=== PATIENT | female | born 1995 | race American Indian/Alaskan Native ===

== ENCOUNTER 2019-02-25 18:34 | Inpatient (IN) | payer OTHER ==
[2019-02-25] MEDS ORDERED: ePHEDrine SULFATE 50 MG/1 ML INJ IV PRN (21:01)
[2019-02-25] MEDS ORDERED: TERBUTALINE 1 MG/1 ML INJ SUB-Q PRN (21:01)
[2019-02-25] MEDS ORDERED: LIDOCAINE (2%) 20 MG/1 ML VIAL 20 ML MDV INFILTRATI ONE (21:01)
[2019-02-25] MEDS ORDERED: AMPICILLIN/NS 2 GM/100 ML 2 GM/100 ML BAG IV ONE (21:01)
[2019-02-25] MEDS ORDERED: fentaNYL 100 MCG/2 ML INJ IV PRN (21:01)
[2019-02-25] MEDS ORDERED: TERBUTALINE 1 MG/1 ML INJ IVP PRN (21:01)
[2019-02-25] MEDS ORDERED: BUTORPHANOL 2 MG/1 ML INJ IV PRN (21:01)
[2019-02-25] MEDS ORDERED: MINERAL OIL 30 ML ORAL LIQD PO PRN (21:01)
[2019-02-25 21:41] LABS: Hematocrit 31.2 % (30.3-42.9); Hemoglobin 10.1 gm/dl (10.1-14.3); Mean Corpuscular HGB Conc 32 % (30-34); Mean Corpuscular Volume 78 fl (79-97); Platelet Count 234 K/mm3 (140-440); Red Blood Count 4.01 M/mm3 (3.65-5.03); Red Cell Distribution Width 17.5 % (13.2-15.2)
[2019-02-25] MEDS: LACTATED RINGERS 1,000 ML IV SCH ×2 (21:57→23:31)
[2019-02-25] MEDS ORDERED: OXYTOCIN 20 UNIT/1000ML DRIP 20 UNITS/1,000 ML BAG IV SCH (22:00)
--- NOTE | 2019-02-25 23:38 | Ultrasound Report ---
OB ultrasound FINDINGS: Single fetus is identified in vertex presentation. heart rate is 149 bpm. Appropriate measurements reveal an MA of 37 weeks 0 days for an EDC of 03/18/2018. This is behind clinical dates b y approximately 2 weeks. CHUCK is normal at 10.8 cm. Estimated weight is 7 lbs. 5 oz. +/- 17 ounc es. Indices are within normal limits. No definite anomalies. Cervix measures 3.4 cm and is closed. No definite abnormality. Signer Name: Rob Torrez MD Signed: 02/25/2019 11:33 PM Workstation Name: [id number]
[2019-02-26] MEDS ORDERED: AMPICILLIN/NS 1 GM/50 ML 1 GM/50 ML BAG IV SCH (01:03)
[2019-02-26] MEDS ORDERED: SODIUM CHLORIDE P/F VIAL 10 ML 10 ML ONE (01:36)
[2019-02-26] MEDS ORDERED: DEXMEDETOMIDINE 200 MCG/2 ML VIAL IV ONE (01:36)
[2019-02-26] MEDS ORDERED: ePHEDrine SULFATE 50 MG/1 ML INJ IV PRN (02:00)
[2019-02-26] MEDS ORDERED: fentaNYL-BUPIV 2 MCG/ML-0.125% 200 MCG/100 ML BAG EPIDURAL SCH (02:00)
[2019-02-26] MEDS ORDERED: NALOXONE 2 MG/2 ML INJ IV PRN (02:00)
--- NOTE | 2019-02-26 02:01 | Anesthesia Consultation ---
Anesthesia Consult and Med Hx Date of service: 02/26/19 - Airway Anesthetic Teeth Evaluation: Good ROM Head & Neck: Adequate Mental/Hyoid Distance: Adequate Mallampati Class: Class II Intubation Access Assessment: Probably Good - Pulmonary Exam CTA: Yes - Cardiac Exam Cardiac Exam: RRR - Pre-Operative Health Status ASA Pre-Surgery Classification: ASA2 Proposed Anesthetic Plan: Epidural - Pulmonary Hx Asthma: No COPD: No Hx Pneumonia: No - Cardiovascular System Hx Hypertension: No - Central Nervous System Hx Seizures: No Hx Psychiatric Problems: No - Endocrine Hx Renal Disease: No Hx End Stage Renal Disease: No Hx Hypothyroidism: No Hx Hyperthyroidism: No - Hematic Hx Anemia: No Hx Sickle Cell Disease: No - Other Systems Hx Alcohol Use: No
[2019-02-26] MEDS ORDERED: BUPIVACAINE/PF (0.25%) 2.5 MG/ML 10 ML VIAL INFILTRATI ONE (03:00)
--- NOTE | 2019-02-26 03:01 | History and Physical Report ---
History of Present Illness Date of examination: 02/26/19 Date of admission: 02/25/19 22:32 Chief complaint: contractions History of present illness: This is a 24 yo G 2 P 1 at 37+0 EDC 09/11/18 here for contractions. She is a walk in patient from [place]. Records unavailable. All labs sent Past History Past Medical History: no pertinent history, other (cerebral palsy) Past Surgical History: no surgical history Family/Genetic History: none Social history: single - Obstetrical History Expected Date of Delivery: 03/18/19 Actual Gestation: 37 Week(s) 1 Day(s) : 2 Para: 1 Hx # Term Pregnancies: 1 Number of Pregnancies: 0 Spontaneous Abortions: 0 Induced : 0 Number of Living Children: 1 Medications and Allergies Allergies Allergy/AdvReac Type Severity Reaction Status Date / Time No Known Allergies Allergy Unverified 02/25/19 20:57 Active Meds: Active Medications Butorphanol Tartrate (Stadol) 2 mg IV Q2H PRN PRN Reason: Pain , Severe (7-10) Ephedrine Sulfate (Ephedrine Sulfate) 10 mg IV Q2M PRN PRN Reason: Hypotension Ephedrine Sulfate (Ephedrine Sulfate) 10 mg IV Q2M PRN PRN Reason: Hypotension Fentanyl (Sublimaze) 100 mcg IV Q2H PRN PRN Reason: Labor Pain Oxytocin/Sodium Chloride (Pitocin/Ns 20 Unit/1000ml Drip) 20 units in 1,000 mls @ 125 mls/hr IV DIRECT DESHAUN Lactated Ringer's (Lactated Ringers) 1,000 mls @ 125 mls/hr IV DIRECT DESHAUN Last Admin: 02/25/19 23:31 Dose: 125 mls/hr Documented by: Ampicillin Sodium (Ampicillin/Ns 1 Gm/50 Ml) 1 gm in 50 mls @ 100 mls/hr IV Q4HR DESHAUN; Protocol Fentanyl/Bupivacaine/Sodium Chlor (Fentanyl-Bupiv 2 Mcg/Ml-0.125%) 200 mcg in 100 mls @ 12 mls/hr EPIDURAL TITR DESHAUN; Protocol Mineral Oil (Mineral Oil) 30 ml PO QHS PRN PRN Reason: Constipation Naloxone HCl (Naloxone) 0.2 mg IV Q5M PRN PRN Reason: Respiratory sedation Terbutaline Sulfate (Brethine) 0.25 mg SUB-Q ONCE PRN PRN Reason: Hyperstimulation/Hypertonicity Terbutaline Sulfate (Brethine) 0.25 mg IVP ONCE PRN PRN Reason: Hyperstimulation/Hypertonicity Review of Systems All systems: negative - Vital Signs Vital signs: Vital Signs Pulse Pulse Ox 104 H 97 02/25/19 21:34 02/25/19 21:34 Temp Pulse Resp BP Pulse Ox 90 119/56 91 02/26/19 02:25 02/26/19 02:25 02/25/19 23:22 - Physical Exam Breasts: Positive: normal Cardiovascular: Regular rate, Normal S1 Lungs: Positive: Clear to auscultation, Normal air movement Abdomen: Positive: normal appearance, soft, normal bowel sounds. Negative: distention, tenderness, guarding Genitourinary (Female): Positive: normal external genitalia, normal perenium Vagina: Positive: normal moisture Uterus: Positive: normal size, normal contour Anus/Rectum: Positive: normal perianal skin Extremities: Positive: normal Deep Tendon Reflex Grade: Normal +2 - Obstetrical FHR: category 1 Cervical Dilatation: 6 Cervical Effacement Percentage: 80 station: -1 Uterine Contraction Pattern: Regular Uterine Tone Measurement Phase: Contraction Uterine Contraction Intensity: Moderate Results Result Diagrams: 02/25/19 21:21 Abnormal lab results 02/25/19 Range/Units 21:21 WBC 14.3 H (4.5-11.0) K/mm3 MCV 78 L (79-97) fl MCH 25 L (28-32) pg RDW 17.5 H (13.2-15.2) % All other labs normal. Ultrasound: report reviewed Assessment and Plan A/P IUP 37 weeks, Vertex Walk in patient - no records available GBS unknown- amp intitated expectant mgt offer epidural expect vaginal delivery
[2019-02-26] MEDS ORDERED: OXYTOCIN DRIP 30 UNITS/500 ML BAG IV SCH (05:00)
[2019-02-26 05:35] LABS: Amphetamine Screen,Urine PRESUMPTIVE NEGATIVE; Benzodiazepines Screen,Urine PRESUMPTIVE NEGATIVE; Cannabinoid Screen,Urine PRESUMPTIVE NEGATIVE; Cocaine Screen,Urine PRESUMPTIVE NEGATIVE; Methadone Screen,Urine PRESUMPTIVE NEGATIVE; Opiate Screen,Urine PRESUMPTIVE NEGATIVE
[2019-02-26] MEDS ORDERED: METHYLERGONOVINE MALEATE 0.2 MG/ML VIAL IM ONE (05:57)
[2019-02-26] MEDS ORDERED: miSOPROStol 200 MCG TAB ONE (05:57)
--- NOTE | 2019-02-26 06:05 | Procedure Note ---
OB Delivery Note - Delivery Date of Delivery: 02/26/19 Surgeon: STEPHANE WASSERMAN Estimated blood loss: 500cc - Vaginal Delivery presentation: vertex Delivery position: OA Intrapartum events: meconium Delivery induction: none Delivery augmentation: rupture of membranes Delivery monitor: external FHT, external uterine Route of delivery: Delivery placenta: spontaneous Delivery cord: 3 umbilical vessels Episiotomy: none Delivery laceration: none, 1st degree Delivery repair: vicryl Anesthesia: epidural Delivery comments: Patient was noted to be c/c/ +1 and commenced to pushing a viable female infant with Apgars 8 and 9 at 0540. The baby placed on moms abdomen and suction nares and pharnx with good cry. The cord was clamped and cut and handed to awaiting to Peds team. The perineum reviewed and noted to have a first degree repaired with 2-0 vicryl. The baby weighed 7 pounds 1.3 oz. EBL 600 cc. Methergine 0.2 mg IV given for uterine atomny. Patient tolerated procedure well. Baby and mom bonding - A at 1 minute: 8 at 5 minutes: 9 Infant Gender: Female (7 pounds 1.3 oz)
[2019-02-26] MEDS ORDERED: KETOROLAC 30 MG/1 ML INJ IV PRN (08:24)
[2019-02-26] MEDS ORDERED: WITCH HAZEL/ GLYCERIN PAD TP PRN (08:24)
[2019-02-26] MEDS ORDERED: oxyCODONE /ACETAMINOPHEN 5-325MG TAB PO PRN (08:24)
[2019-02-26] MEDS ORDERED: diphenhydrAMINE 25 MG CAP PO PRN (08:24)
[2019-02-26] MEDS ORDERED: LANOLIN/ZINC/DIMETHICONE (LANSINOH) 7 GM TP PRN (08:24)
[2019-02-26] MEDS ORDERED: PROMETHAZINE 25 MG TAB PO PRN (08:24)
[2019-02-26] MEDS ORDERED: PROMETHAZINE 25 MG RECT SUPP PR PRN (08:24)
[2019-02-26] MEDS ORDERED: MAGNESIUM HYDROXIDE (MOM) ORAL LIQD UDC PO PRN (08:24)
[2019-02-26] MEDS ORDERED: ONDANSETRON 4 MG/2 ML INJ IV PRN (08:24)
[2019-02-26] MEDS ORDERED: HYDROcodone/ACETAMINOPHEN 5-325 MG TAB PO PRN (08:24)
[2019-02-26] MEDS ORDERED: ACETAMINOPHEN 325 MG TAB PO PRN (08:24)
[2019-02-26] MEDS ORDERED: SENNOSIDES/DOCUSATE SODIUM 8.6/50 MG TAB PO SCH (09:00)
[2019-02-26] MEDS ORDERED: OXYTOCIN 20 UNIT/1000ML DRIP 20 UNITS/1,000 ML BAG IV SCH (09:00)
[2019-02-26] MEDS ORDERED: PRENATAL VIT27-FE FUMARATE-FOLIC ACID VIT TAB PO SCH (10:00)
[2019-02-26] MEDS: IBUPROFEN 600 MG TAB PO SCH ×2 (15:50→21:35)
[2019-02-26] MEDS: DOCUSATE SODIUM 100 MG CAP PO SCH (21:35)
[2019-02-26 23:34] LABS: Hematocrit 25.6 % (30.3-42.9); Hemoglobin 8.1 gm/dl (10.1-14.3)
--- NOTE | 2019-02-27 07:30 | Progress Note ---
Assessment and Plan A: PPD# 1 s/p ; Asymptomatic anemia P: Routine care. Anticipate discharge tomorrow Subjective - Subjective Date of service: 02/27/19 Principal diagnosis: s/p at term Interval history: No overnight issues Patient reports: appetite normal, voiding normally, pain well controlled, ambulating normally : doing well Objective - Vital Signs Latest vital signs: Vital Signs Temp Pulse Resp BP BP Pulse Ox 02/27/19 00:00 98.6 F 69 16 112/62 02/26/19 19:30 98.6 F 77 18 112/62 02/26/19 15:50 20 02/26/19 09:40 98.3 F 91 H 20 129/72 97 02/26/19 08:58 108 H 119/67 02/26/19 08:28 88 118/56 02/26/19 07:57 85 114/59 Intake and Output 02/26/19 02/27/19 02/27/19 22:59 06:59 14:59 Intake Total 600 Output Total 500 Balance -500 600 Intake: Intake, Free Water 600 Output: Urine 500 Void 500 Other: Total, Output Amount 500 - Exam Breasts: Present: deferred Cardiovascular: Present: Regular rate Lungs: Present: Clear to auscultation Abdomen: Present: soft Uterus: Present: fundal height below umbilicus Extremities: Present: normal - Labs Labs: Abnormal lab results 02/26/19 Range/Units 23:19 Hgb 8.1 L (10.1-14.3) gm/dl Hct 25.6 L (30.3-42.9) %
--- NOTE | 2019-02-27 07:31 | Discharge Summary ---
Providers - Providers Date of Admission: 02/25/19 22:32 Date of discharge: 02/27/19 Attending physician: STEPHANE WASSERMAN MD Primary care physician: STEWARDESSES TEACHER Hospitalization Reason for admission: active labor Delivery: Procedure details: Please see delivery note. Episiotomy: none Laceration: 1st degree Other procedures: none complications: none Discharge diagnosis: IUP at term delivered [place] baby: female Hospital course: Pt was admitted in active labor and went on to have a spontaneous vaginal delivery which she tolerated well. Her course was complicate by asymptomatic anemia. She met discharge criteria on PPD#2. She will follow up in 4 wks for exam. Condition at discharge: Stable Disposition: - TO HOME OR SELFCARE - Discharge Diagnoses (1) Term of female Status: Acute (2) Anemia Status: Acute Qualifiers: Anemia type: iron deficiency Iron deficiency anemia type: unspecified iron deficiency Qualified Code(s): D50.9 - Iron deficiency anemia, unspecified (3) Acute blood loss anemia Status: Acute Plan - Discharge Medications Prescriptions: Ferrous Sulfate [Feosol 325 MG tab] 325 mg PO BID #60 tablet Ibuprofen [Motrin] 800 mg PO Q8HR PRN #30 tablet PRN Reason: Pain, Moderate (4-6) HYDROcodone/APAP 5-325 [[place] 5/325] 1 each PO Q6HR PRN #15 tablet PRN Reason: Pain - Provider Discharge Summary Activity: routine, no sex for 6 weeks, no heavy lifting 4 weeks, no strenuous exercise Diet: routine Instructions: routine Additional instructions: [] Smoking cessation referral if applicable(refer to patient education folder for contact #) [] Refer to [facility] Booklet Call your doctor immediately for: * Fever > 100.5 * Heavy vaginal bleeding ( >1 pad per hour) * Severe persistent headache * Shortness of breath * Reddened, hot, painful area to leg or breast * Drainage or odor from incision. * Keep incision clean and dry at all times and follow doctor's instructions regarding bathing/showering - Follow up plan Follow up: STEPHANE WASSERMAN MD [Staff Physician] - 03/26/19 (Please schedule appt )
[2019-02-27] MEDS ORDERED: oxyCODONE /ACETAMINOPHEN 5-325MG TAB PO PRN (08:00)
[2019-02-27] MEDS ORDERED: TETANUS,DIPH,PERTUSS(ACELL) VACCINE 0.5 ML SYRINGE IM ONE (08:24)
[2019-02-27] MEDS ORDERED: MEASLES, MUMPS & RUBELLA 12,500 UNIT/0.5 ML VACCINE SUB-Q ONE (08:24)
--- NOTE | 2019-02-27 09:14 | Post Anesthesia Evaluation ---
- Post Anesthesia Evaluation Patient Participated: Yes Airway Patent: Yes Stable Respiratory Function: Yes Nausea/Vomiting: No Temp > 96.8F: Yes Pain Manageable: Yes Adequeate Hydration: Yes Anesthesia Complications: No Block Receding Appropriately: Yes Patient on Ventilator: No
[2019-02-27] MEDS: DOCUSATE SODIUM 100 MG CAP PO SCH ×2 (12:11→21:26)
[2019-02-27] MEDS: IBUPROFEN 600 MG TAB PO SCH ×2 (12:11→21:25)
[2019-02-28 09:45] VITALS: BP 108/59
== END 2019-02-28 16:55 | disposition home or self-care (01) | DRG 775 ==
LOC: TRG 18:34 → LD 21:26 → TRG 22:31 → LD 22:32 → TRG 23:19 → OB 02-26 12:04
PROVIDERS: ADMIT Obstetrics & Gynecology; ATTEND Obstetrics & Gynecology
PROC: 10E0XZZ Delivery of Products of Conception, External Approach (ICD-10-PCS; principal; 2019-02-26)
PROC: 3E0R3BZ Introduction of Anesthetic Agent into Spinal Canal, Percutaneous Approach (ICD-10-PCS; 2019-02-26)
PROC: 00HU33Z Insertion of Infusion Device into Spinal Canal, Percutaneous Approach (ICD-10-PCS; 2019-02-26)
PROC: 0HQ9XZZ Repair Perineum Skin, External Approach (ICD-10-PCS; 2019-02-26)
PROC: 3E0234Z Introduction of Serum, Toxoid and Vaccine into Muscle, Percutaneous Approach (ICD-10-PCS; 2019-02-27)
PROC: 3E0134Z Introduction of Serum, Toxoid and Vaccine into Subcutaneous Tissue, Percutaneous Approach (ICD-10-PCS; 2019-02-27)
DX: O77.0 Labor and delivery complicated by meconium in amniotic fluid (principal); Z3A.37 37 weeks gestation of pregnancy; Z37.0 Single live birth; Z23 Encounter for immunization; O70.0 First degree perineal laceration during delivery; O90.81 Anemia of the puerperium; D50.9 Iron deficiency anemia, unspecified; D62 Acute posthemorrhagic anemia
CPT/HCPCS: 36415; 59025; 76816; 80307; 85014; 85018; 85027; 86592; 86705; 86706; 86762; 86850; 86900; 86901; 87806; G0378; J0290; J2210; J2590; J3490; J7120